=== PATIENT | male | born 1985 | race Caucasian/White ===

== ENCOUNTER 2023-11-13 21:29 | Emergency (ER) | payer OTHER, SELFPAY ==
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
[2023-11-13 21:34] VITALS: BP 126/98; PULSE 96; RESP 15; TEMP 36.6; O2SAT 98
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
[2023-11-13 22:38] VITALS: O2SAT 98
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
[2023-11-13 23:23] VITALS: BP 139/78; PULSE 78; RESP 16; O2SAT 97
== END 2023-11-13 23:25 | disposition short-term general hospital (02) ==
PROVIDERS: Emergency Provider Emergency Medicine
DX: S30.1XXA Contusion of abdominal wall, initial encounter (principal); S50.12XA Contusion of left forearm, initial encounter; V43.52XA Car driver injured in collision with other type car in traffic accident, initial encounter
CPT/HCPCS: 71045; 72170; 99284; 99285